=== PATIENT | male | born 1955 | race Caucasian/White ===

== ENCOUNTER 2020-08-05 15:11 | Emergency (ER) | payer OTHER ==
[2020-08-05] MEDS ORDERED: solu-MEDROL 125 MG IV ONE (15:24)
--- NOTE | 2020-08-05 15:24 | ERPHSYRPT ---
- History of Present Illness Time Seen by Provider: 08/05/20 15:24 Source: patient Exam Limitations: no limitations Physician History: This is a 65-year-old white male has a history of COPD and hypertension and and presents with worsening shortness of breath and cough and wheezing for the last couple days. Patient continues to smoke cigarettes. 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 He had noticed his breathing was worsening over the last couple days. He has no chest pain. He is mildly short of breath. He has not had any fevers. He has no abdominal pain. He has frequent episodes of COPD exacerbation and bronchitis. Does not use supplemental oxygen oxygen. Timing/Duration: day(s), worse Activities at Onset: activity Severity of Dyspnea-Max: moderate Severity of Dyspnea-Current: mild Possible Cause: frequent episodes, allergen exposure (Patient has been working construction and there is a lot of different types of dust at work) Associated Symptoms: cough, wheezing, No chest pain/discomfort Allergies/Adverse Reactions: No Known Drug Allergies Allergy (Unverified 08/05/20 15:14) Home Medications: Albuterol Sulfate [Proair Hfa] 2 puff IH DAILY 08/05/20 [History] Amlodipine Besylate 0.5 tab PO DAILY 08/05/20 [History] Aspirin 1 tab PO DAILY 08/05/20 [History] Atorvastatin Calcium [Lipitor 40Mg] 1 tab PO DAILY 08/05/20 [History] Clopidogrel Bisulfate [Clopidogrel] 1 tab PO DAILY 08/05/20 [History] Metoprolol Succinate 1 tab PO DAILY 08/05/20 [History] Tamsulosin HCl 0.4 mg [Flomax 0.4 MG] 1 tab PO BID 08/05/20 [History] Testosterone Cypionate 0.5 ml IM WEEKLY 08/05/20 [History] Travel Risk - International Travel Have you traveled outside of the country in past 3 weeks: No - Coronavirus Screening Are you exhibiting any of the following symptoms?: No Close contact with a COVID-19 positive Pt in past 14-21 Days: No - Vaccine Status Have you recieved a Covid-19 vaccination: No - Review of Systems Constitutional: No Symptoms Eyes: No Symptoms Ears, Nose, & Throat: No Symptoms Respiratory: Cough, Wheezing Cardiac: No Symptoms, No Chest Pain Abdominal/Gastrointestinal: No Symptoms Genitourinary Symptoms: No Symptoms Musculoskeletal: No Symptoms Skin: No Symptoms Neurological: No Symptoms Psychological: No Symptoms Endocrine: No Symptoms Hematologic/Lymphatic: No Symptoms Immunological/Allergic: No Symptoms All Other Systems: Reviewed and Negative - Past Medical History Pertinent Past Medical History: Yes Respiratory History: Bronchitis, COPD Endocrine Medical History: No Pertinent History Musculoskeletal History: No Pertinent History GI Medical History: No Pertinent History History: No Pertinent History Psycho-Social History: No Pertinent History Male Reproductive Disorders: No Pertinent History - Past Surgical History Past Surgical History: Yes - Nursing Vital Signs Nursing Vital Signs: Initial Vital Signs Temperature 97.8 F 08/05/20 15:13 Pulse Rate 84 08/05/20 15:13 Respiratory Rate 22 08/05/20 15:13 Blood Pressure 167/112 08/05/20 15:13 O2 Sat by Pulse Oximetry 93 L 08/05/20 15:13 Pain Scale Pain Intensity 0 - Physical Exam General Appearance: mild distress, alert, anxiety Eye Exam: PERRL/EOMI, eyes nml inspection Ears, Nose, Throat Exam: hearing grossly normal Neck Exam: normal inspection, non-tender, supple, full range of motion Respiratory Exam: respiratory distress, airway intact (Mild), wheezing, No chest tenderness, No rhonchi, No stridor Cardiovascular/Chest Exam: normal heart sounds, regular rate/rhythm Abdominal/Gastrointestinal Exam: soft, normal bowel sounds, No tenderness Rectal Exam: not done Extremity Exam: non-tender, normal range of motion, normal inspection Neurologic Exam: alert, cooperative, sharepoint developer II-XII nml as tested, normal mood/affect, nml cerebellar function, nml station & gait, sensation nml Skin Exam: normal color, warm, dry Lymphatic Exam: No adenopathy SpO2 Interpretation: borderline oxygenation O2 Delivery: Room Air - Course Nursing assessment & vital signs reviewed: Yes EKG Interpreted by Me: RATE (75), Sinus Rhythm, NORMAL AXIS, NORMAL INTERVALS, NORMAL QRS, NORMAL ST-T, Other (No acute ischemic changes. No comparison EKG.) Ordered Tests: Active Orders 24 hr Category Date Time Status Reporting Lead STAT Care 08/05/20 15:26 Active EKG-ER Only STAT Care 08/05/20 15:24 Active IV Insertion STAT Care 08/05/20 15:24 Active Pulse Oximetry (ED) STAT Care 08/05/20 15:24 Active CHEST 1 VIEW (PORTABLE) Stat Exams 08/05/20 15:35 Taken BLOOD CULTURE Stat Lab 08/05/20 15:25 Ordered CBC W DIFF Stat Lab 08/05/20 15:30 Completed CMP Stat Lab 08/05/20 15:30 Completed CULTURE,SPUTUM Stat Lab 08/05/20 15:25 Ordered INFLUENZA A+B [place] Stat Lab 08/05/20 Ordered Lactic Acid Stat Lab 08/05/20 15:24 Ordered NT PRO BNP Stat Lab 08/05/20 15:30 Completed TROPONIN Q3H Lab 08/05/20 15:30 Received TROPONIN Q3H Lab 08/05/20 18:30 Ordered TROPONIN Q3H Lab 08/05/20 21:30 Ordered TROPONIN Q3H Lab 08/06/20 00:30 Ordered TROPONIN Q3H Lab 08/06/20 03:30 Ordered Medication Summary Discontinued Medications Generic Name Dose Route Start Last Admin Trade Name Freq PRN Reason Stop Dose Admin Albuterol/Ipratropium 3 ml 08/05/20 15:37 08/05/20 16:01 Duoneb 0.5-3 Mg/3 Ml Neb IH 08/05/20 15:38 3 ml STAT ONE Administration Albuterol/Ipratropium Confirm 08/05/20 15:37 Duoneb 0.5-3 Mg/3 Ml Neb Administered 08/05/20 15:38 Dose 3 ml IH .STK-MED ONE Methylprednisolone Sodium Succinate 125 mg 08/05/20 15:24 08/05/20 15:45 Solu-Medrol 125 Mg IV 08/05/20 15:25 125 mg STAT ONE Administration Methylprednisolone Sodium Succinate Confirm 08/05/20 15:44 Solu-Medrol 125 Mg Administered 08/05/20 15:45 Dose 125 mg .ROUTE .STK-MED ONE Lab/Rad Data: Laboratory Result Diagrams 08/05/20 15:30 08/05/20 15:30 Laboratory Results 08/05/20 08/05/20 08/05/20 Range/Units 15:30 15:30 15:30 WBC 8.2 (4.0-10.5) K/mm3 RBC 5.51 (4.1-5.6) M/mm3 Hgb 16.3 (12.5-18.0) gm/dl Hct 49.3 (42-50) % MCV 89.5 (78-100) fl MCH 29.6 (26-32) pg MCHC 33.1 (32-36) g/dl RDW 13.1 (11.5-14.0) % Plt Count 264 (150-450) K/mm3 MPV 10.3 (7.5-11.0) fl Gran % 63.2 (36.0-66.0) % Eos # (Auto) 0.69 H (0-0.5) Absolute Lymphs (auto) 1.56 (1.0-4.6) Absolute Monos (auto) 0.74 (0.0-1.3) Lymphocytes % 19.0 L (24.0-44.0) % Monocytes % 9.0 (0.0-12.0) % Eosinophils % 8.4 H (0.00-5.0) % Basophils % 0.4 (0.0-0.4) % Absolute Granulocytes 5.19 (1.4-6.9) Basophils # 0.03 (0-0.4) Sodium 137 (137-145) mmol/L Potassium 3.9 (3.5-5.1) mmol/L Chloride 103 (98-107) mmol/L Carbon Dioxide 27 (22-30) mmol/L Anion Gap 11.0 (5-15) MEQ/L BUN 8 L (9-20) mg/dL Creatinine 0.84 (0.66-1.25) mg/dL Estimated GFR > 60.0 ML/MIN Glucose 118 H (74-106) mg/dL Calcium 9.5 (8.4-10.2) mg/dL Total Bilirubin 0.50 (0.2-1.3) mg/dL AST 23 (17-59) U/L ALT 27 (0-50) U/L Alkaline Phosphatase 86 (38-126) U/L Troponin I < 0.012 (0.000-0.034) ng/mL NT-Pro-B Natriuret Pep 54.3 (0-900) pg/mL Serum Total Protein 7.1 (6.3-8.2) g/dL Albumin 4.2 (3.5-5.0) g/dL - Progress Air Movement: good Progress Note: 08/05/20 16:22 Chest x-ray shows no acute cardiopulmonary process. There are chronic changes noted. Blood Culture(s) Obtained: Yes Antibiotics given: No Counseled pt/family regarding: lab results, diagnosis, need for follow-up, rad results - Departure Departure Disposition: Home Clinical Impression: COPD exacerbation Condition: Stable Critical Care Time: No Referrals: DOCTOR,NO FAMILY [Primary Care Provider] - Instructions: Chronic Obstructive Pulmonary Disease Additional Instructions: Stop smoking. Take your medication as prescribed. Use your Ventolin inhaler every 4 hours scheduled for the next 2 to 3 days. Follow-up with your primary care doctor for persistent symptoms. Return to the emergency department if your symptoms acutely worsen Prescriptions: Prednisone 10 mg [Deltasone 10 mg] 10 mg PO TID #12 tablet
[2020-08-05] MEDS ORDERED: DUONEB 0.5-3 MG/3 ml Neb IH ONE ×2 (15:37)
[2020-08-05 15:42] LABS: Absolute Neutrophil Ct (ANC) 5.19 (1.4-6.9); BASOPHIL % 0.4 % (0.0-0.4); Basophil (Absolute #) 0.03 (0-0.4); Eosinophil % 8.4 % (0.00-5.0); Eosinophil (Absolute #) 0.69 (0-0.5); Hematocrit 49.3 % (42-50); Hemoglobin 16.3 gm/dl (12.5-18.0); Lymphocyte (Absolute #) 1.56 (1.0-4.6); Mean Cell Volume 89.5 fl (78-100); Mean Corpuscular Hemoglobin 29.6 pg (26-32); Mean Corpuscular Hgb Concent. 33.1 g/dl (32-36); Mean Platelet Volume 10.3 fl (7.5-11.0); Monocyte (Absolute #) 0.74 (0.0-1.3); Neutrophil % 63.2 % (36.0-66.0); Platelet Count 264 K/mm3 (150-450); Red Blood Count 5.51 M/mm3 (4.1-5.6); Red Cell Distribution Width 13.1 % (11.5-14.0); White Blood Count 8.2 K/mm3 (4.0-10.5)
[2020-08-05] MEDS ORDERED: solu-MEDROL 125 MG ONE (15:44)
[2020-08-05 16:02] LABS: ALBUMIN 4.2 g/dL (3.5-5.0); ALKALINE PHOSPHATASE 86 U/L (38-126); BLOOD UREA NITROGEN 8 mg/dL (9-20); CHLORIDE 103 mmol/L (98-107); Calcium 9.5 mg/dL (8.4-10.2); Carbon Dioxide 27 mmol/L (22-30); Creatinine 1 0.84 mg/dL (0.66-1.25); EST GLOMERULAR FILTRATION RATE > 60.0 ML/MIN; Glucose 118 mg/dL (74-106); NT PRO BNP 54.3 pg/mL (0-900); Potassium 3.9 mmol/L (3.5-5.1); SGOT/AST 23 U/L (17-59); SGPT/ALT 27 U/L (0-50); SODIUM 137 mmol/L (137-145); Total Protein 7.1 g/dL (6.3-8.2)
[2020-08-05 16:03] VITALS: O2SAT 94
--- NOTE | 2020-08-05 16:29 | XRAY ---
Indication: Chronic short of breath. Comparison: None Portable chest hyperinflated and clear. Heart not enlarged with coronary stent graft. Bony thorax intact with lower cervical fusion hardware. Impression: Nonacute hyperinflated chest with chronic features.
[2020-08-05 16:41] LABS: INFLUENZA A NEGATIVE (NEGATIVE); INFLUENZA B NEGATIVE (NEGATIVE)
[2020-08-05 16:47] VITALS: BP 144/89; PULSE 73
== END 2020-08-05 16:53 | disposition home or self-care (01) ==
LOC: ED 15:11
DX: J44.1 Chronic obstructive pulmonary disease with (acute) exacerbation (principal); I10 Essential (primary) hypertension; Z79.899 Other long term (current) drug therapy
CPT/HCPCS: 36000; 36415; 71045; 80053; 83605; 83880; 84484; 85025; 87040; 87400; 93005; 93041; 94640; 94760; 96374; 99284; J2930; A9270-GY

== ENCOUNTER 2023-03-01 10:30 | Day surgery (SDC) | payer MEDICARE, OTHER ==
[2023-03-01] MEDS ORDERED: Depo-Medrol 40 MG/ML IM ONE (10:31)
[2023-03-01] MEDS ORDERED: BUPIVACAINE 0.5% VIAL IJ ONE (10:31)
[2023-03-01] MEDS ORDERED: DIPRIVAN 200 MG/20 ML IV ONE (12:21)
--- NOTE | 2023-03-01 13:34 | XRAY ---
Indication: Bilateral SI joint injection. Intraoperative fluoroscopy provided for 22 seconds. 4 digital spot images submitted for interpretation demonstrates posterior needle tips projecting over the expected left and right SI joint. Correlate with intraoperative findings/report.
--- NOTE | 2023-03-01 14:30 | XRAY ---
22 seconds of fluoroscopy was used in surgery for a bilateral sacroiliac joint injection.
[2023-03-01] MEDS ORDERED: Lactated Ringers 1,000 ML IV ONE (16:26)
== END 2023-03-01 12:48 | disposition home or self-care (01) ==
LOC: SDC-PAIN 10:30
PROVIDERS: ATTEND Psychiatry & Neurology Pain Medicine
DX: M46.1 Sacroiliitis, not elsewhere classified (principal); Z79.899 Other long term (current) drug therapy
CPT/HCPCS: 01992; 27096; 72202; 77002; G0260; J1030; J2704

== ENCOUNTER 2023-07-18 15:51 | Day surgery (SDC) | payer MEDICARE, OTHER ==
[2023-07-18] MEDS ORDERED: XYLOCAINE-MPF 1% 5ML SDV IJ ONE (15:52)
[2023-07-18] MEDS ORDERED: BUPIVACAINE 0.5% VIAL IJ ONE (15:52)
[2023-07-18] MEDS ORDERED: Depo-Medrol 40 MG/ML IM ONE (15:52)
--- NOTE | 2023-07-18 18:26 | XRAY ---
Indication: Right shoulder and subacromial bursa injection. Intraoperative fluoroscopy provided for 25 seconds. 3 digital spot image submitted for interpretation demonstrates needle tip projecting over right glenohumeral joint superiorly. Second needle tip subacromial. Small amount of contrast injected for needle tip placement. Correlate with intraoperative findings/report.
--- NOTE | 2023-07-19 14:46 | XRAY ---
25 seconds of fluoroscopy was used in surgery for a right intra-articular shoulder and subacromial bursa injection.
== END 2023-07-18 17:48 | disposition home or self-care (01) ==
LOC: SDC-PAIN 15:51
PROVIDERS: ATTEND Psychiatry & Neurology Pain Medicine
DX: M19.011 Primary osteoarthritis, right shoulder (principal); E11.9 Type 2 diabetes mellitus without complications
CPT/HCPCS: 20610; 73030; 77002; 82947; J1010; Q9966

== ENCOUNTER 2023-10-17 14:41 | Day surgery (SDC) | payer MEDICARE, OTHER ==
[2023-10-17] MEDS ORDERED: Sodium Chloride 0.9(Preservative Free) 10 ML IJ ONE (14:42)
[2023-10-17] MEDS ORDERED: LIDOCAINE HCL 1% 50 MG/5 ML VL PF IJ ONE (14:42)
[2023-10-17] MEDS ORDERED: Depo-Medrol 40 MG/ML IM ONE (14:42)
[2023-10-17] MEDS ORDERED: Decadron 4 MG INJ IV ONE (14:42)
[2023-10-17] MEDS ORDERED: Lactated Ringers 1,000 ML IV ONE (17:56)
--- NOTE | 2023-10-17 19:02 | XRAY ---
Indication: Lumbar KHUSHI. Intraoperative fluoroscopy provided for 16 seconds. 4 digital spot image submitted for interpretation demonstrates needle tip projecting posterior to lumbosacral junction interspace. Small amount of contrast injected for needle tip placement. Correlate with intraoperative findings/report.
--- NOTE | 2023-10-17 19:02 | XRAY ---
Indication: Left piriformis injection. Intraoperative fluoroscopy provided for 9 seconds. Single digital spot image submitted for interpretation demonstrates needle tip projecting over left piriformis. Small amount of contrast injected for needle tip placement. Correlate with intraoperative findings/report. Incidental partially visualized left hip arthroplasty.
--- NOTE | 2023-10-18 12:14 | XRAY ---
9 seconds of fluoroscopy was used in surgery for a left piriformis injection.
--- NOTE | 2023-10-18 12:15 | XRAY ---
16 seconds of fluoroscopy was used in surgery for a lumbar KHUSHI.
== END 2023-10-17 17:58 | disposition home or self-care (01) ==
LOC: SDC-PAIN 14:41
PROVIDERS: ATTEND Psychiatry & Neurology Pain Medicine
DX: M54.16 Radiculopathy, lumbar region (principal); M79.18 Myalgia, other site
CPT/HCPCS: 20552; 62323; 72100; 72170; 77002; 77003; 82947; J1100; J2001; Q9966

== ENCOUNTER 2023-11-21 15:51 | Day surgery (SDC) | payer MEDICARE, OTHER ==
[2023-11-21] MEDS ORDERED: BUPIVACAINE 0.5% VIAL IJ ONE (15:52)
[2023-11-21] MEDS ORDERED: Depo-Medrol 40 MG/ML IM ONE (15:52)
--- NOTE | 2023-11-21 20:28 | XRAY ---
Indication: Right shoulder and subacromial bursa injection. Intraoperative fluoroscopy provided for 16 seconds. 2 digital spot image submitted for interpretation demonstrates needle tip projecting over right glenohumeral joint superiorly. Second needle tip subacromial. Small amount of contrast injected for needle tip placement. Correlate with intraoperative findings/report.
--- NOTE | 2023-11-22 09:17 | XRAY ---
16 seconds of fluoroscopy was used in surgery for a right intra-articular shoulder and subacromial bursa injection.
== END 2023-11-21 17:25 | disposition home or self-care (01) ==
LOC: SDC-PAIN 15:51
PROVIDERS: ATTEND Psychiatry & Neurology Pain Medicine
DX: M19.011 Primary osteoarthritis, right shoulder (principal); M75.51 Bursitis of right shoulder; E11.9 Type 2 diabetes mellitus without complications
CPT/HCPCS: 20610; 73030; 77002; 82947; Q9966

== ENCOUNTER 2024-04-16 07:41 | Day surgery (SDC) | payer MEDICARE, OTHER ==
[2024-04-16] MEDS ORDERED: Pepcid 20 MG VIAL IV ONE ×2 (07:48→08:01)
[2024-04-16] MEDS ORDERED: Decadron 4 MG PO ONE (07:48)
[2024-04-16] MEDS ORDERED: TYLENOL EXTRA STRENGTH 500 MG PO ONE (07:48)
[2024-04-16] MEDS ORDERED: NEURONTIN PO ONE (07:48)
[2024-04-16] MEDS ORDERED: celeBREX 100 MG PO ONE (07:48)
[2024-04-16] MEDS ORDERED: Lactated Ringers 1,000 ML IV SCH ×2 (08:00)
[2024-04-16] MEDS ORDERED: Decadron 4 MG ONE (08:01)
[2024-04-16] MEDS ORDERED: CEFAZOLIN 2 GM/100 ML NaCl 2 GM/100 ML IVPB IV ONE (08:01)
[2024-04-16] MEDS ORDERED: TYLENOL EXTRA STRENGTH 500 MG ONE (08:01)
[2024-04-16] MEDS ORDERED: NEURONTIN ONE (08:02)
[2024-04-16] MEDS ORDERED: Lactated Ringers 1,000 ML IV ONE (08:02)
[2024-04-16] MEDS ORDERED: celeBREX 100 MG ONE (08:02)
[2024-04-16 08:06] LABS: Absolute Neutrophil Ct (ANC) 9.95 x10^3/uL (1.78-5.38); BASOPHIL % 0.4 % (0.2-1.2); Basophil (Absolute #) 0.05 x10^3/uL (0.01-0.08); Eosinophil % 2.5 % (0.8-7.0); Eosinophil (Absolute #) 0.33 x10^3/uL (0.04-0.54); Hematocrit 45.6 % (40.1-51.0); Hemoglobin 15.1 g/dL (13.7-17.5); IMMATURE GRAN # 0.07 x10^3u/L (0.001-0.031); IMMATURE GRAN % 0.5 % (0.001-0.429); Lymphocyte (Absolute #) 1.91 x10^3/uL (1.32-3.57); Lymphocytes % 14.6 % (21.8-53.1); Mean Cell Volume 83.8 fL (79.0-92.2); Mean Corpuscular Hemoglobin 27.8 pg (25.7-32.2); Mean Corpuscular Hgb Concent. 33.1 g/dL (32.3-36.5); Mean Platelet Volume 9.9 fL (9.4-12.4); Monocyte (Absolute #) 0.81 x10^3/uL (0.30-0.82); Monocytes % 6.2 % (5.3-12.2); Neutrophil % 75.8 % (34.0-67.9); Platelet Count 231 x10^3/uL (163-337); Red Blood Count 5.44 x10^6/uL (4.63-6.08); Red Cell Distribution Width 15.9 % (11.6-14.4); White Blood Count 13.1 x10^3/uL (4.23-9.07)
[2024-04-16 08:25] VITALS: BP 127/83; PULSE 92; RESP 16; TEMP 98.9; O2SAT 94
--- NOTE | 2024-04-16 08:44 | XRAY ---
Indication: Preop exam. Comparison: April 04, 2024. Lungs again hyperinflated with new minimal right base discoid atelectasis/scarring. No focal infiltrate, consolidation, or large effusion. Heart not enlarged. Bony thorax intact again with osteopenia, degenerative changes, and cervical fusion hardware. Impression: New right base discoid atelectasis/scarring. Continued negative for acute pneumonic process or CHF.
[2024-04-16 08:49] LABS: Appearance Clear (Clear); Bacteria None Seen /HPF (None Seen); Bilirubin Small (Negative); Blood Negative (Negative); Epithelial Cells Rare /HPF (None Seen); Glucose, Urine Negative (Negative); Ketones Trace (Negative); Leukocyte Esterase Small (Negative); Nitrite Negative (Negative); Protein,Urine Dip 30 (Negative)
== END 2024-04-16 09:45 | disposition home or self-care (01) ==
LOC: SDC 07:41
PROVIDERS: ATTEND Orthopaedic Surgery
DX: Z53.8 Procedure and treatment not carried out for other reasons (principal); D72.829 Elevated white blood cell count, unspecified; Z79.899 Other long term (current) drug therapy
CPT/HCPCS: 36415; 71045; 81001; 85025; 87086; J0690; A9270-GY